=== PATIENT | female | born 1990 | race Caucasian/White ===

== ENCOUNTER 2016-12-04 20:37 | Emergency (ER) | END 2016-12-04 20:55 | disposition left against medical advice (07) | DX: Z53.21 Procedure and treatment not carried out due to patient leaving prior to being seen by health care provider (principal) ==

== ENCOUNTER 2017-12-16 11:19 | Emergency (ER) | END 2017-12-16 14:31 | disposition home or self-care (01) ==

== ENCOUNTER 2018-09-06 02:21 | Emergency (ER) | END 2018-09-06 04:10 | disposition home or self-care (01) ==

== ENCOUNTER 2018-10-23 19:16 | Emergency (ER) | END 2018-10-23 22:34 | disposition home or self-care (01) ==